=== PATIENT | female | born 1995 | race Hispanic/Latino ===

== ENCOUNTER 2024-03-22 20:57 | Emergency (ER) | payer OTHER ==
[~2024-03-22] VITALS: Ht 157.5 cm; Wt 52.0 kg
[2024-03-22 22:58] LABS: BASOPHILS 1.1 % (0-2); EOSINOPHILS 1.4 % (0-6); HEMATOCRIT 38.6 % (35.0-50.0); HEMOGLOBIN 12.9 g/dL (12.0-18.0); LYMPHOCYTES 32.8 % (24-44); MCH 30.4 (27-36); MCHC 33.4 g/dl (30-36); MCV 90.9 fl (81-99); MONOCYTES 5.3 % (0-12); NEUTROPHILS 59.4 % (39-80); PLATELET COUNT 320 K/uL (140-440); RBC 4.25 M/ul (4.3-5.7); RDW 13.6 (10.5-15.0)
[2024-03-22 23:25] LABS: ALBUMIN/GLOBULIN RATIO 1.14 (1.1-2.4); ANION GAP 11.9 (7-21); BILIRUBIN, TOTAL 0.3 ng/dL (0.2-1.0); BUN/CREATININE RATIO 11.26 (6.0-28.6); CALCIUM 9.1 mg/dL (8.5-10.1); CREATININE, SERUM 0.71 mg/dL (0.55-1.02); MAGNESIUM 1.9 mg/dL (1.8-2.4); POTASSIUM 3.9 mmol/L (3.5-5.1); PROTEIN, TOTAL 7.5 g/dL (6.4-8.2); TSH, 3RD GENERATION 2.27 uIU/mL (0.358-3.740)
[2024-03-22] MEDS ORDERED: PROZAC10 MG PO (23:34)
[2024-03-22] MEDS ORDERED: MECLIZINE HCL 25 MG TAB PO ONE (23:45)
[2024-03-23] MEDS ORDERED: MECLIZINE HCL25 MG PO (00:12)
[2024-03-23 00:40] VITALS: BP 101/65
--- NOTE | 2024-03-23 21:42 | EKG ---
[facility] [address] [facility] [place], [place] [address] Signed Normal sinus rhythm Left axis deviation Abnormal ECG No previous ECGs available Confirmed by Yoandy Lopez MD ([id number]) on 03/23/2024 9:42:19 PM Electronically Signed By: YOANDY LOPEZ DO 03/[id number] PATIENT NAME: LISANDRA NIEVESL Electrocardiogram DATE OF : [birth year] PHYSICIAN: YOANDY LOPEZ DO REPORT #: [id number] REPORT IS CONFIDENTIAL AND NOT TO BE RELEASED WITHOUT AUTHORIZATION
== END 2024-03-23 00:41 | disposition home or self-care (01) ==
LOC: ED 20:57
PROVIDERS: Family Medicine
DX: H81.10 Benign paroxysmal vertigo, unspecified ear (principal); Z79.899 Other long term (current) drug therapy
CPT/HCPCS: 36415; 80053; 83735; 84443; 84703; 85025; 93005; 93010; 99284; A9270